=== PATIENT | female | born 1935 | race Caucasian/White ===

== ENCOUNTER → 2017-01-22 | Day surgery (SDC) | payer MEDICARE, BC ==
[~2017-01-22] MED LIST: AMLODIPINE BES2.5 MG PO; ASPIRIN PO; ASPIRIN81 M2 PO; BACLOFEN10 MG PO; BACTRIM DS TABL1 TA1 PO; CALCIUM MAGNESI1 TA1 PO; CENTRUM SILVER PO; CRESTOR5 MG PO; DITROPAN5 MG PO; DSS100 MG PO; ENABLEX15 MG PO; EXCEDRIN EXTRA1 EAC3 PO; FISH OIL 1,0001 CAP PO; FOLIC ACID PO; FOSINOPRIL SODI10 MG PO; IBUPROFEN600 MG PO; KCL PO; MIRALAX17 GM PO; MOBIC PO; MONODOX50 M1 PO; MONOPRIL HCT 101 TAB; MONOPRIL HCT 101 TAB PO; MYRBETRIQ50 MG PO; NAPROXEN; NEURONTIN PO; ONE DAILY FOR1 EAC1 PO; OSTEO BIFLEX PO; OXAPROZIN600 MG PO; OXYCODONE-APAP1 EACH PO; OYSTER CALCIUM500 MG PO; POTASSIUM99 M2 PO; PRILOSEC20 M1 PO; PRILOSEC40 MG; PRINIVIL10 MG PO; RESTASIS32 EA OP; SENNA LAXATIVE1 TAB PO; SIMVASTATIN20 MG PO; SUPER B COMPLEX1 CAP PO; VESICARE PO; VITAMIN B122500 MCG PO; VITAMIN D 4001 UDTAB PO; VITAMIN D-32000 UNIT PO
--- NOTE | ~2017-01-22 | OR ---
Unit #: [id number] #: [id number] Patient: KATHERIN SMART [id number] [address] [address] [id number] O MR#: [id number] NAME: KATHERIN SMART ROOM: Date of Procedure: 01/22/2017 Admission Date: 01/22/2017 Surgeon: Luis Armando Richardson M.D. : 1935 Attending Physician: Luis Armando Richardson M.D. Primary Care Physician: Raghavendra Fuller M.D. OPERATIVE REPORT PREOPERATIVE DIAGNOSES Back pain, spinal stenosis, radiculopathy, degenerative disk disease, degenerative spine disease. POSTOPERATIVE DIAGNOSES Back pain, spinal stenosis, radiculopathy, degenerative disk disease, degenerative spine disease. PROCEDURE PERFORMED Lumbar epidural steroid injection with fluoroscopic guidance for needle localization. INDICATIONS FOR PROCEDURE The patient is an 82-year-old female with severe multilevel multifactorial nonsurgical degenerative disk and spine disease. She was last treated with epidural steroid injections 2 years ago and did quite well until just recently. Based on history, pathology, symptomatology, and response to treatment, plan is to repeat a trial of epidural steroids. Hopefully, she will settle her pain and up to allow her to get the left total knee replacement she requires also. DESCRIPTION OF PROCEDURE The patient was placed in the seated position. Standard monitors were applied. Sterile prep and drape of the lumbar area were performed. The skin at the L5 level was localized with 1% lidocaine. An 18-gauge [employer]te[employer] needle was then advanced via loss of resistance technique and fluoroscopic guidance in toward the epidural space. The patient did not complain of pain or paresthesia during needle advancement. After confirming proper positioning with fluoroscopy and radiographic contrast, a dose of 80 mg of Depo-Medrol and 6 mL of 0.125% bupivacaine were deposited. The patient tolerated the procedure otherwise well and was discharged to the recovery room in stable condition. Dictated by... Murphy Rodriguez/ja TD: 01/22/2017 16:40 Unit #: [id number] #: [id number] Patient: KATHERIN SMART JOB #: [id number] OPERATIVE REPORT Page 1 of 1 X Luis Armando Richardson MD X PROCEDURE OPERATIVE NOTE
== END | disposition home or self-care (01) ==
LOC: CCSC 09:57
DX: M51.16 Intervertebral disc disorders with radiculopathy, lumbar region (principal); M48.06 Spinal stenosis, lumbar region; I10 Essential (primary) hypertension; J44.9 Chronic obstructive pulmonary disease, unspecified; M19.90 Unspecified osteoarthritis, unspecified site; Z85.3 Personal history of malignant neoplasm of breast; Z79.82 Long term (current) use of aspirin; Z79.899 Other long term (current) drug therapy
CPT/HCPCS: J1040; J2250

== ENCOUNTER → 2017-02-05 | Day surgery (SDC) | payer MEDICARE, BC ==
--- NOTE | ~2017-02-05 | OR ---
Unit #: [id number] #: [id number] Patient: KATHERIN SMART [id number] [address] [place], [place] [address] [id number] O MR#: [id number] NAME: KATHERIN SMART. ROOM: Date of Procedure: 02/05/2017 Admission Date: 02/05/2017 Surgeon: Luis Armando Richardson M.D. : 1935 Attending Physician: Luis Armando Richardson M.D. Primary Care Physician: Raghavendra Fuller M.D. OPERATIVE REPORT PREOPERATIVE DIAGNOSES Back pain, radiculopathy, spinal stenosis, degenerative disk disease. POSTOPERATIVE DIAGNOSES Back pain, radiculopathy, spinal stenosis, degenerative disk disease. PROCEDURE PERFORMED Lumbar epidural steroid injection with fluoroscopic guidance for needle localization. INDICATIONS FOR PROCEDURE The patient is an 82-year-old female, who had a return of back and lower extremity pain associated with multilevel multifactorial degenerative disk and spine disease. She is not a surgical candidate. She was treated medically and done well with epidural steroids in 2016 for over 18 months. She had resurgence of the pain, so the plan is repeat injections. Initial injection not result in much improvement in the past, otherwise taken second and third injection to get substantial improvement. DESCRIPTION OF PROCEDURE The patient was placed in a seated position. Standard monitors were applied. Sterile prep and drape of the lumbar area were performed. The skin then to the right of midline at the L4 level was localized with 1% lidocaine. An 18-gauge Hustead needle was then advanced via right paramedian approach and loss of resistance technique in toward the epidural space. After confirming proper positioning with fluoroscopy and radiographic contrast, 80 mg of Depo-Medrol and 4 mL of 0.125% bupivacaine were deposited. The patient tolerated the procedure otherwise well and was discharged to the recovery room in stable condition. Dictated by... Luis Armando Richardson M.D. LHP/modl TD: 02/05/2017 11:38 JOB #: [id number] Unit #: [id number] #: [id number] Patient: KATHERIN SMART OPERATIVE REPORT Page 1 of 1 X Luis Armando Richardson MD X PROCEDURE OPERATIVE NOTE
== END | disposition home or self-care (01) ==
LOC: CCSC 09:50
DX: M51.16 Intervertebral disc disorders with radiculopathy, lumbar region (principal); M48.06 Spinal stenosis, lumbar region; I10 Essential (primary) hypertension; J44.9 Chronic obstructive pulmonary disease, unspecified; M19.90 Unspecified osteoarthritis, unspecified site; Z85.3 Personal history of malignant neoplasm of breast; Z79.82 Long term (current) use of aspirin; Z79.899 Other long term (current) drug therapy
CPT/HCPCS: J1040; J2250